=== PATIENT | male | born 1965 | race Caucasian/White ===

== ENCOUNTER → 2016-12-31 | Outpatient (CLI) | payer BC ==
[~2016-12-31] MED LIST: APAP500 PO; FLEXERIL PO; HYDROCODONE-AP1 EA11 PO; LEVOTHYROXIN0.175 MG PO; LEVOTHYROXINE0.2 M1 PO; LYRICA 75 MG CA75 MG PO; MOBIC7.5 MG PO; NABUMETONE 500500 M1 PO; TRAMADOL 50 MG50 MG PO; XANAX1 MG PO
== END ==
LOC: NUC 10:57
DX: M79.601 Pain in right arm (principal)